=== PATIENT | male | born 1990 | race Hispanic/Latino ===

== ENCOUNTER 2018-01-05 17:38 | Emergency (ER) | payer SELFPAY ==
[2018-01-05] MEDS ORDERED: Metoclopramide HCl 10 MG/2 ML VIAL ONE (18:11)
[2018-01-05] MEDS ORDERED: diphenhydrAMINE 50 MG/ML VIAL ONE (18:11)
--- NOTE | 2018-01-05 18:40 | CT ---
CT BRAIN NONCONTRAST: 01/05/18 HISTORY: 27-year-old male with severe headache. FINDINGS: There is no midline shift or any other mass effect. There is no evidence of acute intracranial hemor rhage, large cortical infarct, obstructive hydrocephalus, or extraaxial fluid collection. The calvar ium is intact. IMPRESSION: No acute intracranial findings. jn [] POS: [facility]
== END 2018-01-05 19:50 | disposition home or self-care (01) ==
LOC: ERS 17:38
DX: R51 Headache (principal)
CPT/HCPCS: 70450; 96365; 96375; J1200; J2765

== ENCOUNTER 2024-09-20 17:51 | Emergency (ER) | payer SELFPAY ==
[2024-09-20 18:32] LABS: Hematocrit 38.6 % (42.0-52.0); Hemoglobin 13.2 g/dL (14.0-18.0); Mean Corpuscular HGB CONC 34.2 g/dL (32.0-36.0); Mean Corpuscular Hemoglobin 34.6 pg (27.0-31.0); Mean Platelet Volume 11.4 fL (7.4-10.4); Platelet Count 100 10x3/uL (130-400); RBC Distribution Width 12.5 % (11.5-14.5); Red Blood Cell (RBC) Count 3.82 mill/uL (4.70-6.10)
[2024-09-20 18:51] LABS: Band 1 % (5-11); Eosinophils 2 % (0-10); Large Platelets 4.1 % (0-5); Lymphocytes 13 % (21-51); Macrocytosis SLIGHT = 6-15 cells HPF (0-5); Monocytes 15 % (0-10); Neutrophil 67 % (42-75); Platelet Adequacy Comment Platelets Decreased; Polychromasia SLIGHT = 2-3 cells HPF (0-2); RBC Morphology Within Normal Limits; Smudge Cells 10.2 %
[2024-09-20 19:01] LABS: Troponin I Less than 0.010 ng/mL (< 0.028)
[2024-09-20 19:05] LABS: ALT (SGPT) 283 U/L (Less than 45); AST (SGOT) 497 U/L (11-34); Albumin 4.6 g/dL (3.1-4.5); Alkaline Phosphatase 278 U/L (40-110); Anion Gap 19 mmol/L (10-20); BUN (Urea Nitrogen) 9 mg/dL (8.9-20.6); Bilirubin, Total 0.7 mg/dL (0.3-1.2); Calc. Creatinine Clearance 0 mL/min (70-130); Calcium 9.4 mg/dL (7.8-10.44); Carbon Dioxide 18 mmol/L (22-29); Chloride 106 mmol/L (98-107); Estimated GFR 127; Globulin 3.3 g/dL (2.4-3.5); Glucose 128 mg/dL (70-105); Lipase 58 U/L (8-78); Potassium 3.9 mmol/L (3.5-5.1); Protein, Total 7.9 g/dL (6.0-8.3); Sodium 139 mmol/L (136-145)
[2024-09-20] MEDS ORDERED: Ondansetron PF 4 MG/2 ML Vial ONE (19:36)
[2024-09-20] MEDS ORDERED: Diazepam 5 MG TAB ONE (19:36)
== END 2024-09-20 20:33 | disposition home or self-care (01) ==
LOC: ERS 17:51
DX: R07.9 Chest pain, unspecified (principal); K70.10 Alcoholic hepatitis without ascites; F10.230 Alcohol dependence with withdrawal, uncomplicated
CPT/HCPCS: 36415; 71045; 80053; 83690; 83880; 84484; 85025; 93005; 96374; J2405